=== PATIENT | male | born 1955 | race Caucasian/White ===

== ENCOUNTER 2018-04-30 02:57 | Inpatient (IN) ==
--- NOTE | 2018-04-30 03:23 | ED ---
HPI General Chief complaint: Psychiatric Symptoms Stated complaint: Psy eval/DBPD Time Seen by Provider: 04/30/18 03:19 History of Present Illness HPI narrative: 62-year-old male presents under Bernal act initially by the Police Department. According to his paperwork the patient was on the sixth floor of a hotel. He reportedly told his girlfriend that if she did not him that he would jump off the balcony. When she said no he went towards the balcony and then she screamed and called the police. The patient disputes this , he reports that she just needed time to think about it. He denies any suicidal or homicidal ideation, auditory visual hallucination, drug use. Endorses drinking 2 beers tonight. Reports that he was Bernal acted once in the past, unknown reason, denies any psychiatric diagnoses. During examination the patient has rapid pressured speech, flights of ideas, reports that he was too rich to get a first story hotel room that is why he was on the sixth floor. History is limited secondary to the rapid pressured speech. Related Data Allergies Allergy/AdvReac Type Severity Reaction Status Date / Time Penicillins Allergy Unknown UNKNOWN Verified 04/30/18 03:20 Review of Systems ROS: all other systems reviewed are negative [facility] Medical History Medical History Hypertension (Acute) Surgical history unknown (Acute) Social History Social History Substance History: Active Abuse Smoking Status: Never smoker How Often Do You Have a Drink Containing Alcohol: Unable to Obtain Recent Travel in [facility] within the Last 8 Weeks: No Recent Out of Country Travel within the Last 8 Weeks: No Exam Narrative Exam Narrative: GENERAL: This is a well-developed well-nourished male who is in no acute distress. SKIN: Warm and dry. HEAD: Atraumatic. Normocephalic. EYES: Pupils equal and round. No scleral icterus. No injection or drainage. ENT: No nasal bleeding or discharge. Mucous membranes pink and moist. NECK: Trachea midline. No JVD. CARDIOVASCULAR: Regular rate and rhythm. No murmur appreciated. RESPIRATORY: No accessory muscle use. Clear to auscultation. Breath sounds equal bilaterally. GASTROINTESTINAL: Abdomen soft, non-tender, nondistended. Hepatic and splenic margins not palpable. MUSCULOSKELETAL: No obvious deformities. No clubbing. No cyanosis. No edema. NEUROLOGICAL: Awake and alert. No obvious cranial nerve deficits. Motor grossly within normal limits. Normal speech. PSYCHIATRIC: Rapid pressured speech, flights of ideas, insight and judgment appear limited. Course Initial Documented Vital Signs Temperature 98.5 F 04/30/18 03:08 Pulse Rate 89 04/30/18 03:08 Respiratory Rate 18 04/30/18 03:08 Blood Pressure 160/79 H 04/30/18 03:08 Pulse Oximetry 98 04/30/18 03:08 Last Documented Vital Signs Temperature 98.5 F 04/30/18 03:08 Pulse Rate 84 04/30/18 04:24 Respiratory Rate 18 04/30/18 04:24 Blood Pressure 110/59 L 04/30/18 04:24 Pulse Oximetry 96 04/30/18 04:24 Medical Decision Making MDM Narrative Medical decision making narrative: Mental health screening discussed with the patient. Psychiatric screen ordered. The patient became increasingly combative requiring the use of physical restraints, Geodon and Benadryl ordered. While being restrained he sustained abrasions to his left ear. He also appears to have an abrasion to his lower lip but he refuses to allow his lips to be examined. The patient's lab work has been reviewed. He is medically cleared for psychiatric disposition. Medical Screen Exam Complete: Yes Emergency Medical Condition: Yes Differential Diagnosis Differential Diagnosis: Acute psychosis, sympathomimetic drug abuse, bipolar disorder, schizophrenia, schizoaffective disorder, adjustment reaction Lab Data Result diagrams: 04/30/18 03:15 04/30/18 03:15 Lab Results 04/30/18 04/30/18 Range/Units 03:15 03:15 WBC 10.5 (4.0-11.0) th/mm3 RBC 4.76 (4.50-5.90) mil/mm3 Hgb 15.4 (13.0-17.0) gm/dL Hct 44.2 (39.0-51.0) % MCV 93.0 (80.0-100.0) fL MCH 32.4 (27.0-34.0) pg MCHC 34.8 (32.0-36.0) % RDW 14.3 (11.6-17.2) % Plt Count 313 (150-450) th/mm3 MPV 7.2 (7.0-11.0) fL Neut % (Auto) 65.3 (16.0-70.0) % Lymph % (Auto) 23.9 (9.0-44.0) % [place] % (Auto) 9.3 H (0.0-8.0) % Eos % (Auto) 1.0 (0.0-4.0) % Baso % (Auto) 0.5 (0.0-2.0) % Neut # (Auto) 6.8 (1.8-7.7) th/mm3 Lymph # (Auto) 2.5 (1.0-4.8) th/mm3 [place] # (Auto) 1.0 H (0.0-0.9) th/mm3 Eos # (Auto) 0.1 (0.0-0.4) th/mm3 Baso # (Auto) 0.0 (0.0-0.2) th/mm3 WBC Differential . Differential Comment Auto diff final Sodium 137 (136-145) meq/L Potassium 4.1 (3.5-5.1) meq/L Chloride 103 (98-107) meq/L Carbon Dioxide 24.1 (21.0-32.0) meq/L Anion Gap 10 (5-15) meq/L BUN 16 (7-18) mg/dL Creatinine 1.29 (0.60-1.30) mg/dL Estimated GFR 57 L (>89) mL/min Random Glucose 111 H (74-106) mg/dL Calcium 9.5 (8.5-10.1) mg/dL Total Bilirubin 1.0 (0.2-1.0) mg/dL AST 63 H (15-37) U/L ALT 77 (12-78) U/L Alkaline Phosphatase 56 (45-117) U/L Total Protein 8.1 (6.4-8.2) g/dL Albumin 4.3 (3.4-5.0) g/dL TSH 0.458 (0.358-3.740) uIU/mL Serum Alcohol Less than 3 (0-5) mg/dL Discharge Plan Discharge Disposition Patient Disposition: 30 Still Patient Discharge Condition Condition: Stable Discharge Details Diagnosis: Encounter for medical clearance for patient hold Physicians Team ED Provider: Vin Yates ED Midlevel Provider: Magdi Bright Primary Care Provider: UNKNOWN, Status ED Status: Medically Cleared
[2018-04-30 04:02] LABS: Baso % (Auto) 0.5 % (0.0-2.0); Eos # (Auto) 0.1 th/mm3 (0.0-0.4); Hematocrit 44.2 % (39.0-51.0); Hemoglobin 15.4 gm/dL (13.0-17.0); Lymph # (Auto) 2.5 th/mm3 (1.0-4.8); Lymph % (Auto) 23.9 % (9.0-44.0); Mean Corpuscular HGB Conc 34.8 % (32.0-36.0); Mean Corpuscular Hemoglobin 32.4 pg (27.0-34.0); Mean Platelet Volume 7.2 fL (7.0-11.0); Mono % (Auto) 9.3 % (0.0-8.0); Neut # (Auto) 6.8 th/mm3 (1.8-7.7); Neut % (Auto) 65.3 % (16.0-70.0); Platelet Count 313 th/mm3 (150-450); Red Blood Count 4.76 mil/mm3 (4.50-5.90); Red Cell Distribution Width 14.3 % (11.6-17.2); White Blood Count 10.5 th/mm3 (4.0-11.0)
[2018-04-30 04:10] LABS: Alanine Aminotransferase 77 U/L (12-78); Albumin 4.3 g/dL (3.4-5.0); Anion Gap 10 meq/L (5-15); Aspartate Aminotransferase 63 U/L (15-37); Blood Urea Nitrogen 16 mg/dL (7-18); Calcium 9.5 mg/dL (8.5-10.1); Carbon Dioxide 24.1 meq/L (21.0-32.0); Chloride 103 meq/L (98-107); Glomerular Filtration Rate 57 mL/min (>89); Glucose,Random 111 mg/dL (74-106); Potassium 4.1 meq/L (3.5-5.1); Sodium 137 meq/L (136-145)
[2018-04-30 04:21] LABS: Alkaline Phosphatase 56 U/L (45-117); Thyroid Stimulating Hormone 0.458 uIU/mL (0.358-3.740); Total Protein 8.1 g/dL (6.4-8.2)
[2018-04-30 07:19] LABS: Amphetamine Screen,Urine Neg (Neg); Barbiturate Screen,Urine Neg (Neg); Cannabinoid Screen,Urine Pos (Neg); Cocaine Screen,Urine Pos (Neg)
[2018-04-30 07:46] LABS: Opiate Screen,Urine Neg (Neg)
[2018-04-30] MEDS ORDERED: LORazepam 1 MG Tablet PO PRN (10:37)
[2018-04-30] MEDS ORDERED: Haloperidol Inj 5 MG/ML Ampul IV.PUSH PRN (10:37)
[2018-04-30] MEDS ORDERED: Bisacodyl 10 MG Supp RECTAL PRN (10:37)
[2018-04-30] MEDS ORDERED: Aluminum/Magnesium/Simethacone Susp 30 ML UDC PO PRN (10:37)
--- NOTE | 2018-04-30 14:10 | P.HPPSY ---
Provisional Diagnosis Admission Date: April 30, 2018 10:38 [place] I.: Unspecified psychosis vs SIPD, Hx of Bipolar disorder, alcohol and cocaine use disorder [place] II.: Deferred [place] III.: Hypertension Competence Certification of Person's Competence To Provide Express and Informed Consent I have personally examined Paolo Faria, a person being served at [facility] on, April 30, 2018 1353. Express and informed consent means consent voluntarily given in writing, by a competent person, after sufficient explanation and disclosure of the subject matter involved to enable the person to make a knowing and willful decision without any element of force, fraud, deceit, duress, or other form of constraint or coercion. This person is 18 years of age or older, is not now known to be incompetent to consent to treatment with a guardian advocate, and does not have a health care surrogate or proxy currently making medical treatment decisions. I have found this person to be one of the following: [] Competent to provide express and informed consent, as defined above, for voluntary admission to this facility and is competent to provide express and informed consent for treatment. He/she has the consistent capacity to make well reasoned, willful, and knowing decisions concerning his or her medical or mental health treatment. The person fully and consistently understands the purpose of the admission for examination/placement and is fully capable of personally exercising all rights assured under [place] [] Incompetent to provide express and informed consent to voluntary admission, and this is incompetent to provide express and informed consent to treatment. The person must be transferred to involuntary status and a petition for a guardian advocate filed with the Circuit Court. [x Refusing to provide express and informed consent to voluntary admission but is competent to provide express and informed consent for treatment. The person must be discharged or transferred to involuntary status. Form shall be completed within 24 hours of a person's arrival at the receiving facility and filed in the clinical record of each person: 1. Admitted on a voluntary basis 2. Permitted to provide express and informed consent to his/her own treatment 3. Allowed to transfer from involuntary to voluntary status 4. Prior to permitting a person to consent to his or her own treatment after having been previously found incompetent to consent to treatment. History of Present Illness Capacity: Has capacity History of Present Illness: The patient is a 62-year-old man, domiciled into [facility], he is a jackson, single, he reports a psychiatric history of anxiety, bipolar disorder, he denies previous psychiatric admissions, he denies previous suicidal attempts, he is not in treatment, he does report that he is taking Xanax 1 mg 3 times daily for anxiety prescribed by PCP, alcohol, cannabis and cocaine use disorder, medical history hypertension, who presents under Bernal act initially by the Police Department. According to his paperwork the patient was on the sixth floor of a hotel. He reportedly told his girlfriend that if she did not him that he would jump off the balcony. When she said no he went towards the balcony and then she screamed and called the police. The patient disputes this, he reports that she just needed time to think about it. He denies any suicidal or homicidal ideation, auditory visual hallucination, drug use. Endorses drinking 2 beers tonight. During examination the patient has rapid pressured speech, flights of ideas, reports that he was too rich to get a first story hotel room that is why he was on the sixth floor. History is limited secondary to the rapid pressured speech. EMR reviewed. Collateral information from his girlfriend was obtained, her name is Mesfin [phone], who informs that yesterday the patient started at the very bizarre in the hotel , she says that she did not have a lot of alcohol, and he did use some cocaine and cannabis. However, the patient is starting acting very bizarre, it started to say that she did not know he wanted to jump off a balcony in a hotel. She clarifies that she never had any argument with him and never told him that she does not love him, she says that he is making these things up. He reports that the patient had a recent episode of psychosis about a month ago and had to be admitted in psychiatry, which she does not know the details of this hospitalization. The patient became quite aggressive and loud in the J pod, he was unable to follow verbal directions, he continues to be coursing and threatening the staff and other patients and had to be medicated with Geodon 10 mg IM and lorazepam 2 mg IM. He also had to be restrained in 4 points. My evaluation the patient is, he does not give me a lot of information, he seems to be quite disorganized and pressure. He continues to says that he is getting today, that he needs to leave. Patient reports that he does not know the reason he is here. He now denies suicidal enemas ideation, he denies visual and auditory hallucinations. The patient has a prominent loosening of associations, pressured speech, with tangentiality. PPHx: anxiety, bipolar disorder, he denies previous psychiatric admissions, he denies previous suicidal attempts, he is not in treatment, he does report that he is taking Xanax 1 mg 3 times daily for anxiety prescribed by PCP PMHX; HTN Substance Hx: Alcohol, cannabis and cocaine Family Hx: Does not have any family psychiatric history Social Hx: The patient was born and raised in [place], he is in [place] in [place] farm, he says that he has 36 acres, his single, has a girlfriend, 3 kids, his highest level of education is 12 grade. - Inpatient Certification I certify that the inpatient services were ordered in accordance with Medicare regulations governing the order. This includes certification that hospital inpatient services are reasonable and necessary and in the case of services not specified as inpatient-only under 42 CFR 419.22(n), that they are appropriately provided as inpatient services in accordance to with the 2-midnight benchmark under 43 CFR 412.3(e) I certify that inpatient psychiatric hospital services are medically necessary. Evaluation and treatment and/or diagnostic testing are expected to improve the patient's condition. The patient needs on a daily basis, active treatment furnished directly by or requiring the supervision of inpatient psychiatric facility personnel. Estimated Total Length of Stay (Days): 7 Plans for Post Hospital Care: Home Review of Systems Constitutional: Denies anorexia, Denies body ache(s), Denies chills, Denies daytime sleepiness, Denies excessive sweating, Denies fatigue, Denies fever(s), Denies headache(s), Denies increased appetite, Denies lack of energy, Denies malaise, Denies night sweats, Denies weakness, Denies weight gain, Denies weight loss, Denies other Eyes: Denies blind spots, Denies blurry vision, Denies bulging eyes, Denies change in vision, Denies double vision, Denies discharge, Denies dry eyes, Denies floaters, Denies irritation, Denies itchy eyes, Denies loss of vision, Denies pain, Denies requires corrective lenses, Denies sensitivity to light, Denies other Ears, Nose, Mouth, and Throat: Denies abnormal hearing, Denies bleeding gums, Denies bad breath, Denies change in voice, Denies dental pain, Denies difficulty swallowing, Denies dizziness, Denies dry mouth, Denies ear discharge , Denies ear pain, Denies facial pain, Denies headache(s), Denies hearing loss, Denies hoarseness, Denies lip swelling, Denies nosebleed, Denies mouth lesions, Denies mouth pain, Denies nasal congestion, Denies nasal discharge, Denies nasal obstruction, Denies nasal trauma, Denies neck lump, Denies neck pain, Denies nose pain, Denies pain with swallowing, Denies poor balance, Denies post nasal drip, Denies ringing in the ears, Denies sinus pain, Denies sinus pressure , Denies sore throat, Denies throat swelling, Denies tongue swelling, Denies other Cardiovascular: Denies chest pain, Denies chest pain at rest, Denies chest pain with activity, Denies excessive sweating, Denies fainting, Denies fast heart rate, Denies foot swelling, Denies generalized swelling, Denies irregular heart rhythm, Denies leg pain with activity, Denies leg sores, Denies leg swelling, Denies lightheadedness, Denies radiating jaw, neck or arm pain, Denies rapid, pounding, or irregular heartbeat, Denies shortness of breath, Denies shortness of breath with activity, Denies shortness of breath when lying down, Denies shortness of breath causing sudden awakening, Denies slow heart rate, Denies other Respiratory: Denies change in phlegm color, Denies chest congestion, Denies cough, Denies coughing up blood, Denies excessive phlegm production, Denies pain on inspiration, Denies pain with cough, Denies shortness of breath, Denies shortness of breath with activity, Denies snoring, Denies stridor, Denies wheezing, Denies other Gastrointestinal: Denies abdominal pain, Denies belching, Denies black, tarry stools, Denies bloating, Denies bright, red blood in stools, Denies change in bowel habits, Denies constant urge to pass stool, Denies change in stools, Denies coffee ground vomit, Denies constipation, Denies cramping, Denies difficulty swallowing, Denies excessive passing of gas, Denies feeling full early, Denies heartburn, Denies incontinent of stools, Denies loose stools, Denies nausea, Denies pain with swallowing, Denies vomiting, Denies vomiting blood, Denies other Genitourinary: Denies blood in semen, Denies blood in urine, Denies decreased urination, Denies difficulty urinating, Denies difficulty with ejaculations, Denies erectile dysfunction, Denies genital lesions, Denies genital pain, Denies painful urination, Denies side pain, Denies frequent nighttime urination , Denies painful ejaculations, Denies penile discharge, Denies scrotal swelling , Denies testicle lump, Denies testicle pain, Denies urinary frequency, Denies urinary hesitancy, Denies urinary incontinence, Denies urinary urgency, Denies other Musculoskeletal: Denies abnormal walking, Denies back pain, Denies body aches, Denies decreased muscle mass, Denies deformity, Denies joint pain, Denies joint swelling, Denies limited joint movement, Denies loss of height, Denies muscle cramps, Denies muscle weakness, Denies neck pain, Denies numbness, Denies radiating pain into limb, Denies stiffness, Denies tingling, Denies other Skin/Breast: Denies acne, Denies bleeding lesions, Denies boil, Denies breast swelling, Denies breast skin changes, Denies breast pain, Denies breast lump, Denies change in breast shape, Denies change in hair, Denies change in skin color, Denies changing lesions, Denies dry skin, Denies excessive hair growth, Denies hair loss, Denies itching, Denies lesions, Denies nail changes, Denies new lesions, Denies nipple discharge, Denies non-healing lesions, Denies redness , Denies sensitivity to light, Denies rash, Denies skin pain, Denies skin ulcer , Denies sores, Denies stretch otero, Denies unusual bruising, Denies wounds, Denies yellowing of the skin, Denies other Neurologic: Denies abnormal hearing, Denies abnormal movements, Denies abnormal speech, Denies abnormal walking, Denies behavioral changes, Denies burning sensations, Denies confusion, Denies dizziness, Denies fainting, Denies frequent falls, Denies headache(s), Denies lack of coordination, Denies localized weakness, Denies loss of vision, Denies memory loss, Denies numbness, Denies other visual disturbances, Denies radiating pain, Denies restless legs, Denies convulsions, Denies seizure-like activity, Denies sensory deficit, Denies tingling, Denies tingling/numbness/burning sensations, Denies tremor(s), Denies unsteadiness, Denies weakness, Denies other Psychiatric: Reports behavioral changes, Reports irritability, Reports paranoia , Reports thoughts of hurting/killing yourself PMFSH - History History Provided By: Patient - Medical History Medical History: Medical History (Last Updated 04/30/18 @ 04:25 by Cordell Kirk) Hypertension - Surgical History Surgical History: Surgical History (Last Updated 04/30/18 @ 05:25 by Esme Peterson) History of total knee replacement History of total replacement of right hip - Tobacco History Smoking Status: Never smoker - Alcohol History How Often Do You Have a Drink Containing Alcohol: Unable to Obtain - Substance Use History Substance History: Active Abuse - Substance Use Type Alcohol Status: Active Route Used: By Mouth - Travel History Recent Travel in the [place] Within the Last 8 Weeks: No Recent Travel Out of the Country Within the Last 8 Weeks: No - Immunization History Tetanus Immunization: Never Vaccinated Medications and Allergies Active Medications: Active Medications Al Hydrox/Mg Hydrox/Simethicone (Mag-Al Plus Susp Liq) 30 ml PO Q6H PRN PRN Reason: DYSPEPSIA Al Hydroxide/Mg Hydroxide (Milk Of Magnesia Liq) 30 ml PO Q12H PRN PRN Reason: Mild Constipation Bisacodyl (Dulcolax Supp) 10 mg RECTAL DAILY PRN PRN Reason: SEVERE CONSITIPATION Flumazenil (Romazecon Inj) 0.2 mg IV.PUSH Q1M PRN PRN Reason: OVERSEDATION Haloperidol Lactate (Haldol Inj) 1 mg IV.PUSH Q15M PRN PRN Reason: for severe agitation Lactulose (Lactulose Liq) 30 ml PO DAILY PRN PRN Reason: SEVERE CONSITIPATION Lorazepam (Ativan) 1 mg PO Q4H PRN PRN Reason: for CIWA 8-10 Lorazepam (Ativan Inj) 2 mg IV.PUSH Q2H PRN PRN Reason: for CIWA 11-14 Lorazepam (Ativan Inj) 2 mg IV.PUSH Q1H PRN PRN Reason: for CIWA 15-20 Lorazepam (Ativan Inj) 2 mg IV.PUSH Q15M PRN PRN Reason: for CIWA > 20 Lorazepam (Ativan) 2 mg PO Q2H PRN PRN Reason: for CIWA 11-14 Lorazepam (Ativan Inj) 1 mg IV.PUSH Q4H PRN PRN Reason: for CIWA 8-10 Quetiapine Fumarate (Seroquel) 50 mg PO BID PAZ Senna/Docusate Sodium (Nilda-Colace) 1 tab PO BID PAZ Sennosides (Senokot) 17.2 mg PO Q12H PRN PRN Reason: Moderate Constipation Allergies Allergy/AdvReac Type Severity Reaction Status Date / Time Penicillins Allergy Unknown UNKNOWN Verified 04/30/18 03:20 Results - Labs CBC & Chem 7: 04/30/18 03:15 04/30/18 03:15 Labs: Laboratory Results - last 24 hr 04/30/18 04/30/18 04/30/18 03:15 03:15 06:10 WBC 10.5 RBC 4.76 Hgb 15.4 Hct 44.2 MCV 93.0 MCH 32.4 MCHC 34.8 RDW 14.3 Plt Count 313 MPV 7.2 Neut % (Auto) 65.3 Lymph % (Auto) 23.9 [place] % (Auto) 9.3 H Eos % (Auto) 1.0 Baso % (Auto) 0.5 Neut # (Auto) 6.8 Lymph # (Auto) 2.5 [place] # (Auto) 1.0 H Eos # (Auto) 0.1 Baso # (Auto) 0.0 WBC Differential . Differential Comment Auto diff final Sodium 137 Potassium 4.1 Chloride 103 Carbon Dioxide 24.1 Anion Gap 10 BUN 16 Creatinine 1.29 Estimated GFR 57 L Random Glucose 111 H Calcium 9.5 Total Bilirubin 1.0 AST 63 H ALT 77 Alkaline Phosphatase 56 Total Protein 8.1 Albumin 4.3 TSH 0.458 Urine Opiates Screen Neg Ur Barbiturates Screen Neg Ur Amphetamines Screen Neg U Benzodiazepines Scrn Neg Urine Cocaine Screen Pos H U Cannabinoids Screen Pos H Serum Alcohol Less than 3 Exam Vital signs: Vital Signs 04/30/18 03:08 04/30/18 04:24 04/30/18 06:08 Temperature 98.5 F Pulse Rate 89 84 77 Respiratory Rate 18 18 18 Blood Pressure 160/79 H 110/59 L 130/76 Pulse Oximetry 98 96 98 Intake & Output 04/29/18 04/30/18 04/30/18 18:59 06:59 18:59 Weight 99.79 kg Narrative: She presents with quite agitation, hyperactivity, bilateral hand tremors - Constitutional mild distress - Routine HEENT Exam Head: Present: normocephalic Eye: Present: EOMI, PERRL ENT: Present: mucous membranes moist Mental Status Examination Appearance: Dirty Consciousness: Alert Orientation: Person, Place Motor Activity: Normal gait Speech: Pressured Language: Adequate Fund of Knowledge: Adequate Attention and Concentration: Adequate Memory: Unremarkable Mood: Oppositional Affect: Irritable, Labile Thought Process & Associations: Logical, Loose associations, Disorganized Thought Content: Bizarre thinking Hallucination Type: None Delusion Type: Bizarre, Paranoid Suicidal Ideation: Yes Suicidal Plan: No Suicidal Intention: No Homicidal Ideation: No Homicidal Plan: No Homicidal Intention: No Insight: Poor Judgment: Poor Assessment and Plan - Assessment (1) Unspecified psychosis Code(s): F29 - Unspecified psychosis not due to a substance or known physiological condition Status: Acute - Plan Plan: Estimated LOS: [] days Justification for Continued Inpatient Stay: On my psychiatric evaluation today I find a patient that is quite agitated, pressure, hyperactive, no following verbal directions, aggressive toward staff and other patients, who had to be medicated with Geodon 10 mg IM, Ativan 2 mg IM in order to calm him down, and thereafter also had to be restrained physically in 4 points. This is a patient who was brought by police on the Bernal act because he has been acting very bizarre in a hotel, has tried to jump off a 6 floor and stated that his girlfriend does not want to get with him, with this information, confirm my girlfriend is not actually even true. Patient was drinking alcohol, also using cocaine and cannabis. His psychiatric history is not quite clear, he says that he has history of anxiety, the girlfriend says that he has history of bipolar disorder with one previous admission that he denies. However, given his presentation the patient has an elevated risk of danger to self and others, he needs psychiatric admission for stabilization. Current psychosis could be related with recent use of multiple psychoactive substances, but primary psychotic disorder with compensation needs to be carefully ruled out. Patient would be transferred to [address] [facility]. Will order Seroquel 50 mg twice daily for psychosis. Will order a psychiatric consult for second opinion.
[2018-04-30] MEDS: QUEtiapine 25 MG Tablet PO SCH ×2 (15:22→20:56)
[2018-04-30] MEDS: Senna/Docusate Sodium 8.6/50 MG Tablet PO SCH (20:56)
[2018-05-01] MEDS: QUEtiapine 25 MG Tablet PO SCH ×2 (09:28→21:15)
[2018-05-01] MEDS: Senna/Docusate Sodium 8.6/50 MG Tablet PO SCH ×2 (09:30→21:15)
[2018-05-01 11:03] LABS: Carbon Dioxide 26.4 meq/L (21.0-32.0); Potassium 3.8 meq/L (3.5-5.1)
[2018-05-01 11:06] LABS: Chol/HDL Ratio 1.9 Ratio; HDL Cholesterol 67.6 mg/dL (40.0-60.0)
--- NOTE | 2018-05-01 15:31 | P.PNPSY ---
Subjective Remarks: This is a request for second opinion. Admission note was reviewed and I agree with the history. Patient was seen and case was discussed with nursing. Patient minimizes his suicide attempt. Patient gives conflicting series of events compared to the statements made by his girlfriend. 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 Today, patient denies suicidal or homicidal ideation intent or plan Mental Status Examination Appearance: Dirty Consciousness: Alert Orientation: Person, Place, Date/Time Motor Activity: Normal gait Speech: Pressured Language: Adequate Fund of Knowledge: Adequate Attention and Concentration: Adequate Memory: Unremarkable Mood: Oppositional, Irritable Affect: Irritable, Labile Thought Process & Associations: Logical, Loose associations, Disorganized Thought Content: Bizarre thinking Hallucination Type: None Delusion Type: Bizarre, Paranoid Suicidal Ideation: Yes Suicidal Plan: No Suicidal Intention: No Homicidal Ideation: No Homicidal Plan: No Homicidal Intention: No Insight: Poor Judgment: Poor Assessment and Plan - Assessment (1) Unspecified psychosis Code(s): F29 - Unspecified psychosis not due to a substance or known physiological condition Status: Acute - Plan Plan: I agree with the first opinion to continue petition. Criteria include suicidal ideation Justification for Continued Inpatient Stay: Patient would decompensate in a less restrictive setting
[2018-05-02] MEDS: QUEtiapine 25 MG Tablet PO SCH ×2 (08:51→20:44)
[2018-05-02] MEDS: Senna/Docusate Sodium 8.6/50 MG Tablet PO SCH ×2 (08:52→20:43)
--- NOTE | 2018-05-02 15:54 | P.PNPSY ---
Subjective Remarks: Patient was seen and case discussed with nursing. Patient continues to show symptoms of marilin. He is elated, has increased energy and is not sleeping. He is intrusive with others throughout the day. His Seroquel is being held by nursing because of hypotension. Mental Status Examination Appearance: Dirty Consciousness: Alert Orientation: Person, Place, Date/Time Motor Activity: Normal gait Speech: Pressured Language: Adequate Fund of Knowledge: Adequate Attention and Concentration: Adequate Memory: Unremarkable Mood: Manic Affect: Labile, Other (Elevated) Thought Process & Associations: Loose associations Thought Content: Bizarre thinking Hallucination Type: None Delusion Type: Bizarre, Paranoid Suicidal Ideation: No Suicidal Plan: No Suicidal Intention: No Homicidal Ideation: No Homicidal Plan: No Homicidal Intention: No Insight: Poor Judgment: Poor Assessment and Plan - Assessment (1) Unspecified psychosis Code(s): F29 - Unspecified psychosis not due to a substance or known physiological condition Status: Acute - Plan Plan: Get consent tomorrow for a different bipolar agent Justification for Continued Inpatient Stay: Patient would decompensate in a less restrictive setting
[2018-05-03] MEDS: QUEtiapine 25 MG Tablet PO SCH (08:33)
[2018-05-03] MEDS: Senna/Docusate Sodium 8.6/50 MG Tablet PO SCH (08:34)
--- NOTE | 2018-05-03 12:58 | P.DSPSY ---
Psychiatry Discharge Summary Inpatient Psychiatric care?: Yes Advance Directives: No Mental Health Advance Directive: Yes Health Care Proxy: Yes - Admission Admission Date: April 30, 2018 10:38 - Admission Diagnosis (1) Unspecified psychosis Code(s): F29 - Unspecified psychosis not due to a substance or known physiological condition Brief History: The patient is a 62-year-old man, domiciled into [facility], he is a jackson, single, he reports a psychiatric history of anxiety, bipolar disorder, he denies previous psychiatric admissions, he denies previous suicidal attempts, he is not in treatment, he does report that he is taking Xanax 1 mg 3 times daily for anxiety prescribed by PCP, alcohol, cannabis and cocaine use disorder, medical history hypertension, who presents under [place] act initially by the [employer]. According to his paperwork the patient was on the sixth floor of a hotel. He reportedly told his girlfriend that if she did not him that he would jump off the balcony. When she said no he went towards the balcony and then she screamed and called the police. The patient disputes this, he reports that she just needed time to think about it. He denies any suicidal or homicidal ideation, auditory visual hallucination, drug use. Endorses drinking 2 beers tonight. During examination the patient has rapid pressured speech, flights of ideas, reports that he was too rich to get a first story hotel room that is why he was on the sixth floor. History is limited secondary to the rapid pressured speech. EMR reviewed. Collateral information from his girlfriend was obtained, her name is Mesfin [phone], who informs that yesterday the patient started at the very bizarre in the hotel , she says that she did not have a lot of alcohol, and he did use some cocaine and cannabis. However, the patient is starting acting very bizarre, it started to say that she did not know he wanted to jump off a balcony in a hotel. She clarifies that she never had any argument with him and never told him that she does not love him, she says that he is making these things up. He reports that the patient had a recent episode of psychosis about a month ago and had to be admitted in psychiatry, which she does not know the details of this hospitalization. The patient became quite aggressive and loud in the J pod, he was unable to follow verbal directions, he continues to be coursing and threatening the staff and other patients and had to be medicated with Geodon 10 mg IM and lorazepam 2 mg IM. He also had to be restrained in 4 points. My evaluation the patient is, he does not give me a lot of information, he seems to be quite disorganized and pressure. He continues to says that he is getting today, that he needs to leave. Patient reports that he does not know the reason he is here. He now denies suicidal enemas ideation, he denies visual and auditory hallucinations. The patient has a prominent loosening of associations, pressured speech, with tangentiality. PPHx: anxiety, bipolar disorder, he denies previous psychiatric admissions, he denies previous suicidal attempts, he is not in treatment, he does report that he is taking Xanax 1 mg 3 times daily for anxiety prescribed by PCP PMHX; HTN Substance Hx: Alcohol, cannabis and cocaine Family Hx: Does not have any family psychiatric history Social Hx: The patient was born and raised in [place], he is in a [place] in a farm, he says that he has 36 acres, his single, has a girlfriend, 3 kids, his highest level of education is 12 grade. Tobacco Use In Past 30 Days: Yes How Often Do You Have a Drink Containing Alcohol: 2 to 3 times a week Hospital Course: 05/01/2018 This is a request for second opinion. Admission note was reviewed and I agree with the history. Patient was seen and case was discussed with nursing. Patient minimizes his suicide attempt. Patient gives conflicting series of events compared to the statements made by his girlfriend. 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 Today, patient denies suicidal or homicidal ideation intent or 05/02/2018 Patient was seen and case discussed with nursing. Patient continues to show symptoms of marilin. He is elated, has increased energy and is not sleeping. He is intrusive with others throughout the day. His Seroquel is being held by nursing because of hypotension. At the moment of discharge the patient presents calm, cooperative, pleasant. The patient does not present any neuropsychiatric symptoms that require an immediate psychiatric intervention, the patient denies symptomatology of depression, anxiety, marilin and psychosis. He denies suicidal enemas ideation, he denies visual and auditory hallucinations. Apparently his initial agitation , aggressive and disorganized behavior was the result of acute alcohol intoxication. This information has been confirmed by a girlfriend. Patient does not meet criteria to continue psychiatric hospitalization. Extensive support, motivational psych education provided. 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.94 - Alcohol use, unspecified with alcohol-induced mood disorder Status: Acute Discharge Disposition: Home - Discharge Instructions Discharge Diet: Regular Diet - Discharge Time > 30 minutes Mental Status Examination Appearance: Dirty Consciousness: Alert Orientation: Person, Place, Date/Time Motor Activity: Normal gait Speech: Pressured Language: Adequate Fund of Knowledge: Adequate Attention and Concentration: Adequate Memory: Unremarkable Mood: Manic Affect: Labile, Other (Elevated) Thought Process & Associations: Loose associations Thought Content: Bizarre thinking Hallucination Type: None Delusion Type: Bizarre, Paranoid Suicidal Ideation: No Suicidal Plan: No Suicidal Intention: No Homicidal Ideation: No Homicidal Plan: No Homicidal Intention: No Insight: Poor Judgment: Poor Discharge/Advance Care Plan - Results Vital Signs: Last Vital Signs Temp 98.3 F 05/02/18 05:34 Pulse 62 05/03/18 06:21 Resp 16 05/03/18 06:21 BP 142/69 H 05/03/18 06:21 Pulse Ox 99 05/03/18 06:21 Lab Results: Laboratory Results Hemoglobin A1c 6.0 % (4.3-6.0) 05/01/18 09:43 Triglycerides 83 mg/dL (42-150) 05/01/18 09:43 Cholesterol 129 mg/dL (120-200) 05/01/18 09:43 LDL Cholesterol, Calc 45 mg/dL (0-99) 05/01/18 09:43 HDL Cholesterol 67.6 mg/dL (40.0-60.0) H 05/01/18 09:43 TSH 0.458 uIU/mL (0.358-3.740) 04/30/18 03:15 Summary of Procedures: NOne Pending Results: None - Medications Number of antipsychotic medications at discharge: 0 - Discharge Care Plan Goals to Promote Your Health: * To prevent worsening of your condition and complications * To maintain your health at the optimal level Directions to Meet Your Goals: Take your medications as prescribed Follow your dietary instruction Follow activity as directed Keep your appointments as scheduled Take your immunizations and boosters as scheduled If your symptoms worsen call your PCP, if no PCP go to Urgent Care Center or Emergency Room For 30/03 questions related to your inpatient stay or results of tests pending at discharge, please contact Dr. Des Orosco MD at Smoking is Dangerous to Your Health. Avoid second hand smoking
== END 2018-05-03 13:50 | disposition home or self-care (01) ==
LOC: NEPJ 02:57 → NEDA 10:38 → H270 12:27 → H260 05-02 04:49 → H270 05-02 17:16
PROVIDERS: ADMIT Psychiatry & Neurology Psychiatry; ATTEND Psychiatry & Neurology Psychiatry